=== PATIENT | male | born 1965 | race Caucasian/White ===

== ENCOUNTER → 2024-02-18 09:36 | Outpatient (BNVA) | payer BC, SELFPAY | PROVIDERS: Visit Provider Clinical Nurse Specialist Psychiatric/Mental Health ==

== ENCOUNTER 2024-05-19 09:29 | Outpatient (AMB) | payer BC, SELFPAY ==
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
== END 2024-05-19 10:25 | disposition home or self-care (01) ==
LOC: HO.HOP 09:29
PROVIDERS: Visit Provider Clinical Nurse Specialist Psychiatric/Mental Health
DX: F90.2 Attention-deficit hyperactivity disorder, combined type (principal); F43.22 Adjustment disorder with anxiety
CPT/HCPCS: 90833; 99214

== ENCOUNTER → 2024-05-19 09:29 | Outpatient (BNVA) | payer BC, SELFPAY | PROVIDERS: Visit Provider Clinical Nurse Specialist Psychiatric/Mental Health ==

== ENCOUNTER 2024-07-03 09:53 | Outpatient (AMB) | payer BC, SELFPAY ==
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
== END 2024-07-03 10:26 | disposition home or self-care (01) ==
LOC: HO.HOP 09:53
PROVIDERS: Visit Provider Clinical Nurse Specialist Psychiatric/Mental Health
DX: F90.2 Attention-deficit hyperactivity disorder, combined type (principal); F43.22 Adjustment disorder with anxiety
CPT/HCPCS: 90833; 99213

== ENCOUNTER → 2024-07-03 09:53 | Outpatient (BNVA) | payer BC, SELFPAY | PROVIDERS: Visit Provider Clinical Nurse Specialist Psychiatric/Mental Health ==

== ENCOUNTER 2024-08-21 09:02 | Outpatient (AMB) | payer BC, SELFPAY ==
--- NOTE | 2024-08-21 09:13 | A.OFFPSYCH_ITS ---
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 he is trying to focus on other things but the issue continues to go on- he has a court date for a hearing for no trespass order in oct. He is spending time with his sons, working and goes running to cope. no problem with sleep or appetite. 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 bid , no trouble sleeping, without adderall he is scattered, eats well, weight is stable, getting started on tasks is very difficult, ability to listen, increased difficult watching TV and sitting still Dx with ADHD at age 14, Dr. 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 Subjective Subjective Subjective Medication Compliance: Yes Side effects from medications: No Review of Systems Medical Review of Systems: unchanged Mental Status Exam Mental Status Exam Patient Appearance: Well Grooomed and Appropriate Patient Orientation: Person, Place, Time and Situation Level of Consciousness: Awake and Alert Patient Behavior: Appropriate and Cooperative Mood Description: Anxious Affect Description: Anxious Patient Cognition Impaired: No Ability to Follow Directions: Excellent Speech Pattern: Clear Memory Description: Intact Hallucinations: None Delusions: Not Present Thought Process: Intact Thought Content: positive for Intact and positive for Preoccupation Judgement: Good Assessment and Plan Assessment & Plan (1) Adjustment disorder with anxiety: Status: Acute Code(s): F43.22 - Adjustment disorder with anxiety (2) ADHD (attention deficit hyperactivity disorder), combined type: Status: Acute Code(s): F90.2 - Attention-deficit hyperactivity disorder, combined type Plan continue vyvanse continue to use coping skills to manage stressful situation Medications: Refilled lisdexamfetamine (Vyvanse) Partial Fill upon patient request. 70 mg PO QAM 30 caps 0RF lisdexamfetamine (Vyvanse) Partial Fill upon patient request. 70 mg PO QAM 30 caps 0RF Counseling and coordination of Care Pt. Self Management counseling: Maintenance-social rhythm, Mindfulness, Mod caffeine/ETOH intake, Sleep hygiene, General coping skills and Problem solving Medication management counseling: Effectiveness, Side effects, Dosing range, Duration, Drug interaction and Adherence Diagnosis and Prognosis Counseling: Accuracy of diagnosis, Prognosis over time, Impact of diagnosis on life functions, Impact of family relationship, Problematic behaviors secondary to diagnosis and Adequacy of current interventions Details: I spent 40 minutes reviewing the record, seeing the patient and documenting in the medical record. Counseling provided to the patient/caregiver as outlined below. Addressed patient/caregiver concerns regarding current medication regime including effective adherence. Addressed patient/caregiver concerns regarding diagnosis and prognosis including accuracy of diagnosis, prognosis over time, impact of diagnosis. Addressed patient/caregiver concerns regarding impact of recent stressors. [facility] Social History: Grew up in [place], lived with mother and father, 5 siblings. Patient is the 2nd youngest, 3 sisters 2 brothers, didn't like school. Has bachelors and did one year of Masters - school was a struggle. 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
== END 2024-08-21 09:46 | disposition home or self-care (01) ==
LOC: HO.HOP 09:02
PROVIDERS: Visit Provider Clinical Nurse Specialist Psychiatric/Mental Health
DX: F43.22 Adjustment disorder with anxiety (principal); F90.2 Attention-deficit hyperactivity disorder, combined type
CPT/HCPCS: 90833; 99214

== ENCOUNTER → 2024-08-21 09:02 | Outpatient (BNVA) | payer BC, SELFPAY | PROVIDERS: Visit Provider Clinical Nurse Specialist Psychiatric/Mental Health ==

== ENCOUNTER 2024-11-20 09:42 | Outpatient (AMB) | payer BC, SELFPAY ==
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
== END 2024-11-20 09:44 | disposition home or self-care (01) ==
LOC: HO.HOP 09:42
PROVIDERS: Visit Provider Clinical Nurse Specialist Psychiatric/Mental Health
DX: F90.2 Attention-deficit hyperactivity disorder, combined type (principal); F43.22 Adjustment disorder with anxiety
CPT/HCPCS: 99214